=== PATIENT | female | born 1980 | race Hispanic/Latino ===

== ENCOUNTER 2017-09-19 00:03 | Emergency (ER) | payer BC ==
[~2017-09-19 00:03] MED LIST: PNV91TAB3 PO
== END 2017-09-19 00:37 | disposition home or self-care (01) ==
LOC: EDH 00:03
DX: E11.40 Type 2 diabetes mellitus with diabetic neuropathy, unspecified (principal); I10 Essential (primary) hypertension; Z79.4 Long term (current) use of insulin
CPT/HCPCS: 73620

== ENCOUNTER → 2019-03-28 | Outpatient (CLI) | payer OTHER ==
[~2019-03-28] MED LIST changes: +AMLO5TAB4 PO; +AMLO5TAB9 PO; +ATOR10 PO; +FURO40TA5 PO; +Folic Acid/Vitamin B Comp W-C PO; +INSU200I4 SQ; +LISI40TA4 PO; +METO100T14 PO; +METO25 PO
== END | disposition home or self-care (01) ==
LOC: OIH 11:02
PROVIDERS: ATTEND Internal Medicine Cardiovascular Disease
DX: Z13.6 Encounter for screening for cardiovascular disorders (principal); I31.3 Pericardial effusion (noninflammatory)
CPT/HCPCS: 75571

== ENCOUNTER → 2019-04-13 | Outpatient (CLI) | payer BC ==
[~2019-04-13] MED LIST changes: -AMLO5TAB4 PO; -AMLO5TAB9 PO; -ATOR10 PO; -FURO40TA5 PO; -Folic Acid/Vitamin B Comp W-C PO; -INSU200I4 SQ; -LISI40TA4 PO; -METO100T14 PO; -METO25 PO
== END | disposition home or self-care (01) ==
LOC: SHCH 13:23
PROVIDERS: ATTEND Internal Medicine Cardiovascular Disease
DX: I11.9 Hypertensive heart disease without heart failure (principal); I31.3 Pericardial effusion (noninflammatory)
CPT/HCPCS: 93306

== ENCOUNTER 2019-05-07 06:19 | Inpatient (IN) | payer BC ==
[~2019-05-07] VITALS: Ht 157.5 cm; Wt 80.3 kg
[2019-05-07 06:59] LABS: BASOPHILS % (AUTO) 0.7 % (0.0-5.0); EOSINOPHILS % (AUTO) 0.5 % (0.0-8.0); HEMATOCRIT 26.3 % (36-48); LYMPHOCYTES % (AUTO) 12.1 % (21.0-51.0); MEAN CORPUSCULAR HEMOGLOBIN 29.9 pg (27.0-33.0); MEAN CORPUSCULAR HGB CONC 33.7 g/dL (32.0-36.0); MEAN CORPUSCULAR VOLUME 88.7 fL (79-99); MONOCYTES % (AUTO) 4.7 % (3.0-13.0); PLATELET COUNT (AUTO) 146 K/uL (130-400); RED BLOOD CELL COUNT(AUTO) 2.96 MIL/uL (4.00-5.50); RED CELL DISTRIBUTION WIDTH 14.6 % (11.0-15.5); WHITE BLOOD COUNT (AUTO) 8.4 K/uL (4.8-10.8)
[2019-05-07 07:12] LABS: INR 0.92 (0.85-1.15); PARTIAL THROMBOPLASTIN TIME 29.4 SEC (26.3-35.5); PROTHROMBIN TIME 9.7 SEC (9.6-11.6)
[2019-05-07 07:29] LABS: B-TYPE NATRIURETIC PEPTIDE 1390 pg/mL (0-100)
[2019-05-07 07:39] LABS: ALBUMIN 2.8 g/dL (3.5-5.0); BILIRUBIN,TOTAL 0.4 mg/dL (0.2-1.0); POTASSIUM 4.3 mmol/L (3.5-5.1); TOTAL PROTEIN, SERUM 6.9 g/dL (6.0-8.3)
[2019-05-07 07:43] LABS: CREATININE 9.1 mg/dL (0.5-1.5)
[2019-05-07] MEDS ORDERED: METOPROLOL TARTRATE 1 MG/ML 5ML VIAL IV ONE (08:07)
[2019-05-07] MEDS ORDERED: AZITHROMYCIN 250 MG TABLET PO ONE (08:08)
[2019-05-07] MEDS ORDERED: CEFTRIAXONE SODIUM 1 GM ONE (08:08)
[2019-05-07] MEDS ORDERED: NITROGLYCERIN 1GM/1 INCH PACKET TD ONE (08:08)
[2019-05-07] MEDS: AZITHROMYCIN 500MG+NS 250ML 250 ML IV SCH (08:15)
[2019-05-07] MEDS ORDERED: DiphenhydrAMINE HCL 50 MG/ML VIAL IV PRN (08:15)
[2019-05-07] MEDS ORDERED: ACETAMINOPHEN 325 MG TAB PO PRN ×2 (08:15)
[2019-05-07] MEDS ORDERED: DEXTROSE 50%-WATER 50 ML DISP.SYRIN IV PRN (08:15)
[2019-05-07] MEDS ORDERED: HYDRALAZINE HCL 20 MG/ML VIAL IV PRN (08:15)
[2019-05-07] MEDS ORDERED: DIPHENHYDRAMINE HCL 25 MG CAPSULE PO PRN (08:15)
[2019-05-07] MEDS ORDERED: LACTULOSE 20 GM/30 ML UDCUP PO PRN (08:15)
[2019-05-07] MEDS ORDERED: NITROGLYCERIN 0.4 MG SL TAB SL PRN (08:15)
[2019-05-07] MEDS ORDERED: GLUCAGON 1MG KIT 1 MG ML IM PRN (08:15)
[2019-05-07] MEDS ORDERED: MAG HYDROX/AL HYDROX/SIMETH ES 30 ML SUSP UDCUP PO PRN (08:15)
[2019-05-07 08:47] LABS: HEMOGLOBIN A1C 4.9 % (4.0-6.0)
[2019-05-07 09:00] VITALS: BP 173/99
[2019-05-07] MEDS: CEFTRIAXONE SODIUM 1 GM IV SCH ×2 (09:00→21:11)
[2019-05-07] MEDS ORDERED: FUROSEMIDE 10 MG/ML 4ML VIAL IVP SCH (09:00)
[2019-05-07] MEDS ORDERED: FURO40TA5 PO (09:17)
[2019-05-07] MEDS ORDERED: METO100T14 PO (09:17)
[2019-05-07] MEDS ORDERED: ATOR10 PO (09:17)
[2019-05-07] MEDS ORDERED: INSU200I4 SQ (09:17)
[2019-05-07] MEDS ORDERED: AMLO5TAB9 PO (09:17)
[2019-05-07] MEDS ORDERED: FUROSEMIDE 10 MG/ML 10ML VIAL IVP SCH (09:30)
[2019-05-07] MEDS: METOPROLOL TARTRATE 25 MG TAB PO SCH ×2 (10:36→21:11)
[2019-05-07] MEDS: FAMOTIDINE 20MG TAB 20 MG TAB PO SCH ×2 (10:36→21:12)
[2019-05-07] MEDS: AMLODIPINE BESYLATE 5 MG TAB PO SCH ×2 (10:36→21:11)
[2019-05-07 11:00] VITALS: BP 165/107
[2019-05-07] MEDS: INSULIN HUMULIN R 100 UNIT/ML 3ML SQ SCH ×3 (11:30→21:00)
--- NOTE | 2019-05-07 14:48 | NUR ---
D/C PLAN CM spoke to pt regarding d/c planning. Pt is ind. and lives with spouse. States spouse can assist in care if needed. Plan to home. No needs verbalized or identified. CM to f/u. Addendum: 05/07/19 at 1449 by ANDRZEJ PEREZ CM Amended: Links added.
[2019-05-07 15:00] VITALS: BP 158/95
[2019-05-07] MEDS: FUROSEMIDE 10 MG/ML 10ML VIAL IVP SCH (16:52)
[2019-05-07 19:55] VITALS: BP 157/97
[2019-05-07 23:53] VITALS: BP 163/82
[2019-05-08] VITALS (11 sets, daily range): BP systolic 145–182; BP diastolic 75–110
[2019-05-08] MEDS: FUROSEMIDE 10 MG/ML 10ML VIAL IVP SCH ×2 (04:25→17:59)
[2019-05-08 04:41] LABS: BASOPHILS % (AUTO) 0.7 % (0.0-5.0); EOSINOPHILS % (AUTO) 0.9 % (0.0-8.0); LYMPHOCYTES % (AUTO) 16.8 % (21.0-51.0); MEAN CORPUSCULAR HEMOGLOBIN 29.4 pg (27.0-33.0); MEAN CORPUSCULAR VOLUME 89.1 fL (79-99); MONOCYTES % (AUTO) 3.7 % (3.0-13.0); NEUTROPHILS % (AUTO) 77.9 % (40.0-77.0); NUCLEATED RED BLOOD CELLS 0.1 % (0.0-0.19); PLATELET COUNT (AUTO) 185 K/uL (130-400); RED CELL DISTRIBUTION WIDTH 14.7 % (11.0-15.5); WHITE BLOOD COUNT (AUTO) 6.6 K/uL (4.8-10.8)
[2019-05-08 04:48] LABS: APPEARANCE,URINE Clear (CLEAR); BILIRUBIN,URINE Negative (NEGATIVE); COLOR,URINE Yellow (YELLOW); GLUCOSE, URINE (UA) TRACE mg/dL (NEGATIVE); KETONES,URINE Negative (NEGATIVE); LEUKOCYTE ESTERASE ,URINE Negative (NEGATIVE); NITRATE,URINE Negative (NEGATIVE); OCCULT BLOOD,URINE Small (NEGATIVE); PH,URINE 5.5 (5.0-8.0); PROTEIN,URINE 300 mg/dL (NEGATIVE); UROBILINOGEN,URINE 0.2 mg/dL (0.2-1.0)
[2019-05-08 04:53] LABS: BACTERIA,URINE None Seen /HPF (None Seen); MUCUS,URINE Few LPF (None Seen); SQUAMOUS EPITHELIAL CELL,UR Moderate /HPF (0-2); WBC,URINE 0-1 /HPF (0-1)
[2019-05-08 04:54] LABS: HCG,QUAL RESULT NEGATIVE (NEGATIVE)
[2019-05-08 04:55] LABS: AMPHET/METH SCREEN,URINE NEGATIVE (NEGATIVE); BARBITURATE SCREEN, URINE NEGATIVE (NEGATIVE); BENZODIAZEPINES SCREEN,URINE NEGATIVE (NEGATIVE); CANNABINOID SCREEN,URINE NEGATIVE (NEGATIVE); COCAINE SCREEN,URINE NEGATIVE (NEGATIVE); OPIATE SCREEN,URINE NEGATIVE (NEGATIVE); PHENCYCLIDINE SCREEN,URINE NEGATIVE (NEGATIVE)
[2019-05-08 04:56] LABS: HEMOGLOBIN A1C 4.7 % (4.0-6.0)
[2019-05-08 05:01] LABS: INR 0.92 (0.85-1.15); PARTIAL THROMBOPLASTIN TIME 31.9 SEC (26.3-35.5); PROTHROMBIN TIME 9.7 SEC (9.6-11.6)
[2019-05-08 05:13] LABS: ALBUMIN 2.6 g/dL (3.5-5.0); BILIRUBIN,DIRECT 0.1 mg/dL (0.0-0.3); BILIRUBIN,TOTAL 0.3 mg/dL (0.2-1.0); TOTAL PROTEIN, SERUM 6.6 g/dL (6.0-8.3)
[2019-05-08 05:18] LABS: % IRON SATURATION 13.6 % (22-44)
[2019-05-08 06:00] LABS: CREATININE 9.5 mg/dL (0.5-1.5)
[2019-05-08] MEDS: INSULIN HUMULIN R 100 UNIT/ML 3ML SQ SCH ×4 (07:30→20:49)
[2019-05-08] MEDS: METOPROLOL TARTRATE 25 MG TAB PO SCH ×2 (09:00→20:54)
[2019-05-08] MEDS: CEFTRIAXONE SODIUM 1 GM IV SCH ×2 (10:23→20:53)
[2019-05-08] MEDS: AZITHROMYCIN 500MG+NS 250ML 250 ML IV SCH ×2 (10:26→18:00)
--- NOTE | 2019-05-08 11:06 | NUR ---
PERMACATH PLACEMENT / HD NURSE CALLED- PENDING CALL BACK AT THIS TIME. Patient taken down to cath-lab for permacath placement by IR as per Dr. Jayleen Trujillo. Consent for procedure and HD completed. Also, HD Nurse Halina JULES called. However, no answer. Voice message left stating that the patient does have orders for HD today over 2 hrs- As per Dr Jayleen Trujillo. Pending call back from Halina at this time.
[2019-05-08] MEDS ORDERED: LIDOCAINE HCL 1% MDV 50ML VIAL ONE (11:16)
[2019-05-08] MEDS: FOLIC ACID/VITAMIN B COMP W-C 1 MG CAP/TAB PO SCH (12:34)
[2019-05-08] MEDS: FAMOTIDINE 20MG TAB 20 MG TAB PO SCH ×2 (12:34→20:54)
[2019-05-08 13:42] LABS: HEMATOCRIT 26.4 % (36-48)
[2019-05-08 13:58] LABS: ALBUMIN 2.7 g/dL (3.5-5.0)
--- NOTE | 2019-05-08 14:00 | NUR ---
HD NURSE SHANA Morgan made aware of dialysis orders for today, will come see pt today.
[2019-05-08 14:03] LABS: CREATININE 9.6 mg/dL (0.5-1.5)
[2019-05-08] MEDS: ONDANSETRON HCL 4 MG/2 ML VIAL IV PRN (14:21)
--- NOTE | 2019-05-08 15:35 | NUR ---
RD Notification Pt admitted for PNA, ESRD. Pt Hx of DM, HTN, CKDV. Upon visit, Pt reports she was tolerating food until later this afternoon, developing Nausea. Pt with Dialysis after visit. RD also provided Dialysis Diet education. Pt with multiple questions and verbalized understanding. Pt with previous Diabetes diet education, RD reinforced with new Dialysis diet education. Pt monitored labs: CO2 17, BUN 91, Cr 9.5, GFR 5, BG 132, Ca 7.0, Fe 27, TIBC 198, %Sat 13.6, ALb 2.6. RD to continue to monitor. Please notify RD as additional nutrition concerns arise. Thank you. Addendum: 05/08/19 at [address] RD Amended: Links added.
--- NOTE | 2019-05-08 15:39 | NUR ---
DIET EDUCATION RD provided Renal Dialysis diet education. RD reviewed reference materials and handouts with Pt. Pt with multiple questions. RD answered questions, Pt verbalized understanding. RD also reviewed Diabetes diet recommendations with new Dialysis diet information. Pt verbalized understanding. LINCOLN encouraged Pt to notify as additional questions or concerns arise. Addendum: 05/08/19 at [address] RD Amended: Links added.
[2019-05-08] MEDS ORDERED: SODIUM CHLORIDE 0.9% 1000ML 1,000 ML IV PRN (16:00)
[2019-05-08] MEDS ORDERED: ACETAMINOPHEN 325 MG TAB PO PRN (16:00)
[2019-05-08] MEDS ORDERED: 0.9% SODIUM CHLORIDE 1000 ML IV BAG IV PRN (16:00)
[2019-05-08] MEDS: HEPARIN SODIUM 5000UNIT/ML 1ML VIAL IJ PRN (17:13)
--- NOTE | 2019-05-08 17:37 | NUR ---
RIGHT MALLORY BARGERACATLeon Addendum: 05/08/19 at 1738 by RAHUL SANTILLAN RN RN Amended: Links added.
[2019-05-08] MEDS: AMLODIPINE BESYLATE 5 MG TAB PO SCH ×2 (18:00→20:53)
[2019-05-09] MEDS: GUAIFENESIN-DM 200/20 MG 10 ML PO PRN ×2 (04:00→16:05)
[2019-05-09 04:12] VITALS: BP 157/85
[2019-05-09] MEDS: FUROSEMIDE 10 MG/ML 10ML VIAL IVP SCH (04:54)
[2019-05-09 05:42] LABS: BASOPHILS % (AUTO) 1.1 % (0.0-5.0); EOSINOPHILS % (AUTO) 0.9 % (0.0-8.0); HEMATOCRIT 25.9 % (36-48); MEAN CORPUSCULAR HEMOGLOBIN 29.4 pg (27.0-33.0); MEAN CORPUSCULAR HGB CONC 33.1 g/dL (32.0-36.0); MEAN CORPUSCULAR VOLUME 88.9 fL (79-99); MONOCYTES % (AUTO) 6.5 % (3.0-13.0); NEUTROPHILS % (AUTO) 69.5 % (40.0-77.0); PLATELET COUNT (AUTO) 176 K/uL (130-400); RED BLOOD CELL COUNT(AUTO) 2.92 MIL/uL (4.00-5.50); RED CELL DISTRIBUTION WIDTH 14.1 % (11.0-15.5); WHITE BLOOD COUNT (AUTO) 4.5 K/uL (4.8-10.8)
[2019-05-09 05:57] LABS: CREATININE 7.5 mg/dL (0.5-1.5); POTASSIUM 3.4 mmol/L (3.5-5.1)
[2019-05-09] MEDS: INSULIN HUMULIN R 100 UNIT/ML 3ML SQ SCH ×4 (06:17→20:56)
[2019-05-09 07:53] VITALS: BP 155/88
[2019-05-09] MEDS: CEFTRIAXONE SODIUM 1 GM IV SCH ×2 (10:13→20:38)
[2019-05-09] MEDS: FAMOTIDINE 20MG TAB 20 MG TAB PO SCH ×2 (10:13→20:37)
[2019-05-09] MEDS: FOLIC ACID/VITAMIN B COMP W-C 1 MG CAP/TAB PO SCH (10:13)
[2019-05-09 11:31] VITALS: BP 149/84
--- NOTE | 2019-05-09 12:08 | NUR ---
OSCAR PLAN LOUISE SIGNED FOR [facility]. INFO SENT. PENDING 2 MORE TREATMENTS AND HEP AND HIV LABS. Addendum: 05/09/19 at 1209 by TIGIST BUTLER RN CM Amended: Links added.
[2019-05-09 12:09] LABS: HEPATITIS Bs ANTIGEN SCREEN P Negative (Negative)
[2019-05-09 15:19] VITALS: BP 158/87
--- NOTE | 2019-05-09 18:00 | NUR ---
Dialysis center RENAL in [facility]
--- NOTE | 2019-05-09 18:00 | NUR ---
Dr. Kramer Plan for Peritoneal dialysis catheter placement tomorrow 05-09-2019. NPO after midnight.
[2019-05-09] MEDS: METOPROLOL TARTRATE 25 MG TAB PO SCH ×2 (18:19→20:35)
[2019-05-09 19:47] VITALS: BP 166/89
[2019-05-09 23:41] VITALS: BP 155/78
[2019-05-10] VITALS (19 sets, daily range): BP systolic 141–176; BP diastolic 74–92
[2019-05-10 04:20] LABS: BASOPHILS % (AUTO) 0.9 % (0.0-5.0); EOSINOPHILS % (AUTO) 1.5 % (0.0-8.0); LYMPHOCYTES % (AUTO) 23.4 % (21.0-51.0); MEAN CORPUSCULAR HEMOGLOBIN 29.8 pg (27.0-33.0); MEAN CORPUSCULAR HGB CONC 33.9 g/dL (32.0-36.0); MONOCYTES % (AUTO) 9.2 % (3.0-13.0); NUCLEATED RED BLOOD CELLS 0.1 % (0.0-0.19); PLATELET COUNT (AUTO) 167 K/uL (130-400); RED BLOOD CELL COUNT(AUTO) 2.84 MIL/uL (4.00-5.50); RED CELL DISTRIBUTION WIDTH 14.5 % (11.0-15.5); WHITE BLOOD COUNT (AUTO) 4.4 K/uL (4.8-10.8)
[2019-05-10 04:35] LABS: CREATININE 5.4 mg/dL (0.5-1.5); POTASSIUM 3.3 mmol/L (3.5-5.1)
[2019-05-10 04:54] LABS: B-TYPE NATRIURETIC PEPTIDE 1160 pg/mL (0-100)
[2019-05-10] MEDS: INSULIN HUMULIN R 100 UNIT/ML 3ML SQ SCH ×4 (05:32→21:00)
[2019-05-10] MEDS ORDERED: BUPIVACAINE/EPI/PF 0.5% 30ML VIAL IJ ONE (05:43)
--- NOTE | 2019-05-10 06:01 | NUR ---
PROCEDURE PATIENT TRANSFERRED TO HER PERITONEAL DIALYSIS CATHETER PROCEDURE BY OR STAFF. PATIENT AWAKE AND ALERT. NO SIGNS OF DISTRESS OR PAIN.
[2019-05-10] MEDS ORDERED: LIDOCAINE PF 2% 5ML ABBOJECT ONE (06:24)
[2019-05-10] MEDS ORDERED: FENTANYL CITRATE PF 50 MCG/1 ML 2ML VIAL ONE (06:25)
[2019-05-10] MEDS ORDERED: MIDAZOLAM HCL 1 MG/ML 2ML VIAL ONE (06:25)
[2019-05-10] MEDS ORDERED: PROPOFOL 10 MG/ML 20ML VIAL IV ONE (06:25)
[2019-05-10] MEDS ORDERED: ROCURONIUM 10MG/1ML SYR 10 MG/ML ML ONE (06:25)
[2019-05-10] MEDS ORDERED: GLYCOPYRROLATE 1 MG/5 ML SYRINGE ONE (07:59)
[2019-05-10] MEDS ORDERED: MEPERIDINE-PF 25 MG/ML SYG ONE ×2 (08:17→08:28)
[2019-05-10] MEDS: CEFTRIAXONE SODIUM 1 GM IV SCH ×2 (09:57→21:14)
[2019-05-10] MEDS: AZITHROMYCIN 500MG+NS 250ML 250 ML IV SCH (09:57)
[2019-05-10] MEDS: FAMOTIDINE 20MG TAB 20 MG TAB PO SCH ×2 (10:00→21:14)
[2019-05-10] MEDS: FOLIC ACID/VITAMIN B COMP W-C 1 MG CAP/TAB PO SCH (10:00)
[2019-05-10] MEDS: METOPROLOL TARTRATE 25 MG TAB PO SCH ×3 (10:00→21:15)
[2019-05-10] MEDS: LISINOPRIL 40 MG TABLET PO SCH (10:00)
[2019-05-10] MEDS ORDERED: TRAMADOL HCL 50 MG TABLET PO PRN (10:15)
[2019-05-10] MEDS: ONDANSETRON HCL 4 MG/2 ML VIAL IV PRN (10:18)
[2019-05-10] MEDS: AMLODIPINE BESYLATE 5 MG TAB PO SCH (12:34)
[2019-05-11 03:36] VITALS: BP 175/84
[2019-05-11] MEDS: INSULIN HUMULIN R 100 UNIT/ML 3ML SQ SCH ×3 (06:34→16:00)
[2019-05-11] MEDS: AZITHROMYCIN 500MG+NS 250ML 250 ML IV SCH ×2 (07:43→10:16)
[2019-05-11 07:58] VITALS: BP 150/91
[2019-05-11] MEDS: FAMOTIDINE 20MG TAB 20 MG TAB PO SCH (09:00)
[2019-05-11] MEDS: FOLIC ACID/VITAMIN B COMP W-C 1 MG CAP/TAB PO SCH (09:00)
[2019-05-11] MEDS: LISINOPRIL 40 MG TABLET PO SCH (09:00)
[2019-05-11] MEDS: AMLODIPINE BESYLATE 5 MG TAB PO SCH ×2 (09:00→15:43)
[2019-05-11] MEDS: METOPROLOL TARTRATE 25 MG TAB PO SCH (09:00)
[2019-05-11] MEDS: HEPARIN SODIUM 5000UNIT/ML 1ML VIAL IJ PRN (09:53)
[2019-05-11] MEDS: CEFTRIAXONE SODIUM 1 GM IV SCH (10:14)
[2019-05-11 11:45] VITALS: BP 141/88
[2019-05-11] MEDS ORDERED: Folic Acid/Vitamin B Comp W-C PO (12:56)
[2019-05-11] MEDS ORDERED: LISI40TA4 PO (12:56)
[2019-05-11] MEDS ORDERED: AMLO5TAB4 PO (12:56)
[2019-05-11] MEDS ORDERED: METO25 PO (12:56)
[2019-05-11 15:39] VITALS: BP 148/95
--- NOTE | 2019-05-11 15:55 | NUR ---
HL REMOVED, CATHETER INTACT. DISCHARGE INSTRUCTIONS GIVEN, VERBALIZED UNDERSTANDING. PT. STATES WILL RECEIVE FLU VACCINE AT PMD OFFICE.
--- NOTE | 2019-05-11 16:05 | NUR ---
DISCHARGED HOME VIA W/C WITH BELONGINGS ACCOMPANIED BY SHAQ COREA.
--- NOTE | 2019-05-11 16:42 | NUR ---
OSCAR ANDRADE VISITED WITH PATIENT. GAVE PAPER COPY OF DIALYSIS INFO. TTS 615PM AT [facility] [place]. LET HER KNOW PATIENT TO GO TO 1PM TO FINISH SETTING UP. Addendum: 05/11/19 at 1644 by TIGIST BUTLER RN CM Amended: Links added.
== END 2019-05-11 16:04 | disposition home or self-care (01) | DRG 673 ==
LOC: EDH 06:19 → 2AH 08:15
PROVIDERS: ADMIT Family Medicine; ATTEND Family Medicine
PROC: 0JH63XZ Insertion of Tunneled Vascular Access Device into Chest Subcutaneous Tissue and Fascia, Percutaneous Approach (ICD-10-PCS; principal; 2019-05-08)
PROC: 02H633Z Insertion of Infusion Device into Right Atrium, Percutaneous Approach (ICD-10-PCS; 2019-05-08)
PROC: 5A1D70Z Performance of Urinary Filtration, Intermittent, Less than 6 Hours Per Day (ICD-10-PCS; 2019-05-08)
PROC: 5A1D70Z Performance of Urinary Filtration, Intermittent, Less than 6 Hours Per Day (ICD-10-PCS; 2019-05-09)
PROC: 0WHG43Z Insertion of Infusion Device into Peritoneal Cavity, Percutaneous Endoscopic Approach (ICD-10-PCS; 2019-05-10)
PROC: 3E1M39Z Irrigation of Peritoneal Cavity using Dialysate, Percutaneous Approach (ICD-10-PCS; 2019-05-10)
PROC: 5A1D70Z Performance of Urinary Filtration, Intermittent, Less than 6 Hours Per Day (ICD-10-PCS; 2019-05-11)
DX: I12.0 Hypertensive chronic kidney disease with stage 5 chronic kidney disease or end stage renal disease (principal); J18.9 Pneumonia, unspecified organism; N18.6 End stage renal disease; J96.01 Acute respiratory failure with hypoxia; I16.9 Hypertensive crisis, unspecified; J90 Pleural effusion, not elsewhere classified; E87.70 Fluid overload, unspecified; E11.22 Type 2 diabetes mellitus with diabetic chronic kidney disease; E11.51 Type 2 diabetes mellitus with diabetic peripheral angiopathy without gangrene; D64.9 Anemia, unspecified; E66.01 Morbid (severe) obesity due to excess calories; Z68.32 Body mass index [BMI] 32.0-32.9, adult; Z79.4 Long term (current) use of insulin; Z82.3 Family history of stroke; Z82.49 Family history of ischemic heart disease and other diseases of the circulatory system; Z83.3 Family history of diabetes mellitus; Z91.15 Patient's noncompliance with renal dialysis; Z98.891 History of uterine scar from previous surgery; Z99.2 Dependence on renal dialysis; Z91.19 Patient's noncompliance with other medical treatment and regimen
CPT/HCPCS: 36415; 36558; 71045; 77001; 80048; 80053; 80061; 80076; 80305; 81001; 81025; 82040; 82550; 82565; 82728; 82948; 83036; 83540; 83550; 83605; 83880; 84145; 84484; 84520; 85014; 85018; 85025; 85610; 85730; 86701; 86704; 86706; 86738; 87040; 87340; 87390; 87449; 87520; 87804; 90935; 93005; 99291; C1750; G0378; J0360; J0456; J0696; J1644; J1815; J1940; J2001; J2175; J2250; J2405; J2704; J3010; J3490; J7030

== ENCOUNTER 2019-07-10 06:56 | Day surgery (SDC) | payer BC ==
[~2019-07-10] VITALS: Ht 157.5 cm; Wt 78.3 kg
[~2019-07-10 06:56] MED LIST changes: +AMLO5TAB4 PO; +ATOR10 PO; +Folic Acid/Vitamin B Comp W-C PO; +INSU200I4 SQ; +LISI40TA4 PO; +METO25 PO; -PNV91TAB3 PO
[2019-07-10 07:35] VITALS: BP 120/71
--- NOTE | 2019-07-10 07:35 | NUR ---
PATIENT ARRIVED TO DAY PATIENT ACCOMPANIED BY SELF. PATIENT AAOX3, RESPIRATIONS UNLABORED, VITAL SIGNS STABLE, DENIES ANY PAIN. PROCEDURE VERIFIED WITH PATIENT. HOSPITAL ROUTINE EXPLAINED TO PATIENT. PATIENT VERBALIZED UNDERSTANDING.
[2019-07-10 07:51] LABS: BASOPHILS % (AUTO) 0.2 % (0.0-5.0); EOSINOPHILS % (AUTO) 0.8 % (0.0-8.0); LYMPHOCYTES % (AUTO) 18.1 % (21.0-51.0); MEAN CORPUSCULAR HEMOGLOBIN 29.6 pg (27.0-33.0); MEAN CORPUSCULAR HGB CONC 32.2 g/dL (32.0-36.0); MEAN CORPUSCULAR VOLUME 91.8 fL (79-99); MONOCYTES % (AUTO) 3.8 % (3.0-13.0); NEUTROPHILS % (AUTO) 76.9 % (40.0-77.0); PLATELET COUNT (AUTO) 175 K/uL (130-400); RED BLOOD CELL COUNT(AUTO) 2.94 MIL/uL (4.00-5.50); RED CELL DISTRIBUTION WIDTH 13.4 % (11.0-15.5); WHITE BLOOD COUNT (AUTO) 8.8 K/uL (4.8-10.8)
[2019-07-10 08:08] LABS: INR 0.94 (0.85-1.15); PROTHROMBIN TIME 9.9 SEC (9.6-11.6)
[2019-07-10 08:14] LABS: ALBUMIN 3.4 g/dL (3.5-5.0); BILIRUBIN,TOTAL 0.2 mg/dL (0.2-1.0); POTASSIUM 4.7 mmol/L (3.5-5.1); TOTAL PROTEIN, SERUM 7.9 g/dL (6.0-8.3)
[2019-07-10] MEDS ORDERED: SODIUM CHLORIDE 0.9% 1000ML 1,000 ML IV ONE (08:19)
[2019-07-10] MEDS ORDERED: LIDOCAINE HCL 1% MDV 50ML VIAL ONE (08:30)
[2019-07-10 08:44] LABS: CREATININE 11.5 mg/dL (0.5-1.5)
--- NOTE | 2019-07-10 09:05 | NUR ---
RIGHT PERMACATH REMOVAL AT BEDSIDE PATIENT PREPPED AT BEDSIDE FOR RIGHT PERMACATH REMOVAL PER DR CRUZ. TIMEOUT PERFORMED PRIOR TO START OF PROCEDURE. 1% LIDOCAINE ADMINISTERED TO SITE. CATHETER REMOVED AND MANUAL PRESSURE APPLIED. NO BLEEDING OR HEMATOMA NOTED TO SITE. DRESSING APPLIED. PATIENT TOLERATED WELL. NO COMPLAINTS. REPORT GIVEN TO PRIMARY NURSE.
[2019-07-10 09:30] VITALS: BP 124/78
--- NOTE | 2019-07-10 09:30 | NUR ---
POST PROCEDURE DRESSING TO RIGHT UPPER CHEST IS DRY/INTACT. NO REDNESS/DRAINAGE OR HEMATOMA NOTED. PATIENT DENIES ANY PAIN AT THIS TIME.
--- NOTE | 2019-07-10 09:54 | NUR ---
DISCHARGE INSTRUCTIONS PROVIDED, HANDOUT PROVIDED AND EXPLAINED TO PATIENT. INSTRUCTED PATIENT TO REMOVE DRESSING IN 72 HOURS, PATIENT VERBALIZED UNDERSTANDING.
[2019-07-10 10:30] VITALS: BP 126/72
--- NOTE | 2019-07-10 11:45 | NUR ---
PATIENT DISCHARGED FROM FACILITY VIA WHEELCHAIR, PATIENT ABLE TO WALK TO PRIVATE VEHICLE AND DRIVE HERSELF HOME
== END 2019-07-10 11:45 | disposition home or self-care (01) ==
LOC: CLH 06:56 → DAH 06:56 → CLH 11:45
PROVIDERS: ATTEND Internal Medicine Nephrology
DX: Z45.2 Encounter for adjustment and management of vascular access device (principal); E11.22 Type 2 diabetes mellitus with diabetic chronic kidney disease; N18.6 End stage renal disease; Z99.2 Dependence on renal dialysis
CPT/HCPCS: 36415; 36589; 71045; 80053; 82948; 85025; 85610; A4215; A4216; A4221; A4223 ×2; A4606; A4663; J3490; J7030

== ENCOUNTER → 2019-12-12 | Outpatient (CLI) | payer BC, MEDICARE | END | disposition home or self-care (01) | LOC: SHCH 16:00 | PROVIDERS: ATTEND Internal Medicine Cardiovascular Disease | DX: I10 Essential (primary) hypertension (principal) | CPT/HCPCS: 93306; 93356 ==

== ENCOUNTER → 2019-12-14 | Outpatient (CLI) | payer BC, MEDICARE ==
[~2019-12-14] MED LIST changes: +REGADENOSON 0.4 MG/5 ML PF SYG IVP SCH
== END | disposition home or self-care (01) ==
LOC: SHCH 08:40
PROVIDERS: ATTEND Internal Medicine Cardiovascular Disease
DX: I10 Essential (primary) hypertension (principal)
CPT/HCPCS: 78452; 93017; 96374; A9500 ×2; J2785

== ENCOUNTER 2020-02-22 06:39 | Day surgery (SDC) | payer BC, MEDICARE ==
[2020-02-14 11:21] LABS: BASOPHILS % (AUTO) 0.4 % (0.0-5.0); EOSINOPHILS % (AUTO) 0.9 % (0.0-8.0); HEMATOCRIT 23.6 % (36-48); LYMPHOCYTES % (AUTO) 22.1 % (21.0-51.0); MEAN CORPUSCULAR HEMOGLOBIN 33.3 pg (27.0-33.0); MEAN CORPUSCULAR HGB CONC 34.3 g/dL (32.0-36.0); MEAN CORPUSCULAR VOLUME 97.1 fL (79-99); MONOCYTES % (AUTO) 4.5 % (3.0-13.0); NEUTROPHILS % (AUTO) 71.6 % (40.0-77.0); PLATELET COUNT (AUTO) 167 K/uL (130-400); RED BLOOD CELL COUNT(AUTO) 2.43 MIL/uL (4.00-5.50); RED CELL DISTRIBUTION WIDTH 14.4 % (11.0-15.5); WHITE BLOOD COUNT (AUTO) 7.5 K/uL (4.8-10.8)
[2020-02-14 12:31] LABS: INR 0.89 (0.85-1.15); PARTIAL THROMBOPLASTIN TIME 26.8 SEC (26.3-35.5); PROTHROMBIN TIME 9.7 SEC (9.6-11.6)
--- NOTE | 2020-02-21 09:59 | NUR ---
labs abnormal hh reported to dr. stewart, message left with Glo, pending call back
[~2020-02-22] VITALS: Ht 157.5 cm; Wt 80.1 kg
[2020-02-22] VITALS (21 sets, daily range): BP systolic 112–165; BP diastolic 63–90
[~2020-02-22 06:39] MED LIST changes: -AMLO5TAB4 PO; +AMLO5TAB9 PO; +FURO40TA5 PO; -Folic Acid/Vitamin B Comp W-C PO; -INSU200I4 SQ; +LACTATED RINGERS 1000ML 1,000 ML IV SCH; +LEVO50TA11 PO; +LINA5TAB PO; -METO25 PO; +NPH,100V11 SQ; +PANT40TA54 PO; -REGADENOSON 0.4 MG/5 ML PF SYG IVP SCH; +STRONG IODINE SOLN 14ML BOTTLE ONE
[2020-02-22] MEDS ORDERED: VASOPRESSIN 20 UNITS/ML 1ML VIAL ONE (06:52)
[2020-02-22] MEDS ORDERED: SODIUM CHLORIDE 0.9% 1000ML 1,000 ML IV ONE (06:59)
[2020-02-22] MEDS ORDERED: FENTANYL CITRATE PF 50 MCG/1 ML 2ML VIAL ONE (07:23)
[2020-02-22] MEDS ORDERED: PROPOFOL 10 MG/ML 20ML VIAL IV ONE (07:23)
[2020-02-22] MEDS ORDERED: DEXAMETHASONE SOD PHOSPHATE 10MG/ML 1ML VIAL ONE (07:23)
[2020-02-22] MEDS ORDERED: ONDANSETRON HCL 4 MG/2 ML VIAL ONE (07:23)
[2020-02-22] MEDS ORDERED: LIDOCAINE PF 2% 5ML ABBOJECT ONE (07:23)
[2020-02-22] MEDS ORDERED: SUCCINYLCHOLINE 200MG/10ML SYR ONE (07:23)
[2020-02-22] MEDS ORDERED: MIDAZOLAM HCL 1 MG/ML 2ML VIAL ONE ×2 (07:23→08:38)
[2020-02-22] MEDS ORDERED: ROCURONIUM 10MG/1ML SYR 10 MG/ML ML ONE (07:24)
[2020-02-22 07:26] LABS: POTASSIUM 4.7 mmol/L (3.5-5.1)
[2020-02-22 07:45] LABS: CREATININE 19.4 mg/dL (0.5-1.5)
[2020-02-22] MEDS ORDERED: MEPERIDINE-PF 25 MG/ML SYG ONE ×2 (08:29→08:49)
[2020-02-22] MEDS ORDERED: MORPHINE SULFATE 4 MG/1ML SYG ONE (09:05)
--- NOTE | 2020-02-22 09:30 | NUR ---
PATIENT ARRIVED TO DAY PATIENT VIA STRETCHER BY DHARA GARCIA. PATIENT AAOX3, RESPIRATIONS UNLABORED, VITAL SIGNS STABLE. NO C/O PAIN AT THIS TIME. S/P CONE KNIFE CONIZATION, NO VALERIO PAD IN PLACE. NO BLEEDING AT THIS TIME NOTED FROM VAGINA.
--- NOTE | 2020-02-22 09:50 | NUR ---
DISCHARGE INSTRUCTIONS PROVIDED TO (FAMILY) MEGAN CHAMORRO VIA TELEPHONE. HANDOUTS PROVIDED AND FOLLOW UP APPOINTMENT PROVIDED WELL. ALL QUESTIONS/CONCERNS ADDRESSED.
--- NOTE | 2020-02-22 10:10 | NUR ---
PATIENT DISCHARGED FROM HOSPITAL VIA WHEELCHAIR BY NURSE. PATIENT ASSISTED (STAND BY ASSIST) INTO PRIVATE VEHICLE DRIVEN BY FAMILY.
== END 2020-02-22 10:10 | disposition home or self-care (01) ==
LOC: DAH 06:39
PROVIDERS: ATTEND Specialist
DX: R87.613 High grade squamous intraepithelial lesion on cytologic smear of cervix (HGSIL) (principal); I12.9 Hypertensive chronic kidney disease with stage 1 through stage 4 chronic kidney disease, or unspecified chronic kidney disease; E11.22 Type 2 diabetes mellitus with diabetic chronic kidney disease; N18.9 Chronic kidney disease, unspecified; Z99.2 Dependence on renal dialysis; Z20.828 Contact with and (suspected) exposure to other viral communicable diseases
CPT/HCPCS: 36415 ×2; 57520; 80048; 82948 ×2; 84703; 85025; 85610; 85730; 86850; 86900; 86901; A4215; A4221; A4222; A4223; A4351; A4663; A6260; C1769; C9803; J0330; J2001; J2175 ×2; J2250 ×2; J2270; J2405; J2704; J3010; J3490; J7030; U0003; J1100

== ENCOUNTER 2020-03-18 18:06 | Emergency (ER) | payer BC, MEDICARE ==
[~2020-03-18 18:06] MED LIST changes: +ASPI-1443 PO; +FOLIC ACID PO; +IRON150C15 PO; -LACTATED RINGERS 1000ML 1,000 ML IV SCH; +PANT40TA55 PO; +RENAVITE PO; -STRONG IODINE SOLN 14ML BOTTLE ONE
[2020-03-19] MEDS ORDERED: FURO40TA5 PO (10:52)
[2020-03-19] MEDS ORDERED: PHOSLOC PO (10:53)
== END 2020-03-18 19:46 | disposition home or self-care (01) ==
LOC: EDH 18:06
DX: T82.838A Hemorrhage due to vascular prosthetic devices, implants and grafts, initial encounter (principal); Y83.8 Other surgical procedures as the cause of abnormal reaction of the patient, or of later complication, without mention of misadventure at the time of the procedure; Y92.89 Other specified places as the place of occurrence of the external cause
CPT/HCPCS: 99281

== ENCOUNTER 2020-06-23 08:06 | Emergency (ER) | payer BC, MEDICARE ==
[~2020-06-23 08:06] MED LIST changes: +AMLO-257 PO; -AMLO5TAB9 PO; -PANT40TA54 PO; +PHOSLOC PO
== END 2020-06-23 10:23 | disposition home or self-care (01) ==
LOC: EDH 08:06
DX: I12.0 Hypertensive chronic kidney disease with stage 5 chronic kidney disease or end stage renal disease (principal); E11.22 Type 2 diabetes mellitus with diabetic chronic kidney disease; N18.6 End stage renal disease; Z90.49 Acquired absence of other specified parts of digestive tract; Z90.710 Acquired absence of both cervix and uterus; Z98.890 Other specified postprocedural states
CPT/HCPCS: 99281

== ENCOUNTER 2020-06-29 11:58 | Inpatient (IN) | payer BC, MEDICARE ==
[~2020-06-29] VITALS: Ht 157.5 cm; Wt 73.0 kg
[~2020-06-29 11:58] MED LIST changes: -LISI40TA4 PO; +LISI40TA9 PO
[2020-06-29 12:51] LABS: BASOPHILS % (AUTO) 0.6 % (0.0-5.0); EOSINOPHILS % (AUTO) 3.9 % (0.0-8.0); LYMPHOCYTES % (AUTO) 16.1 % (21.0-51.0); MEAN CORPUSCULAR HEMOGLOBIN 33.3 pg (27.0-33.0); MEAN CORPUSCULAR HGB CONC 35.4 g/dL (32.0-36.0); MEAN CORPUSCULAR VOLUME 94.2 fL (79-99); MONOCYTES % (AUTO) 7.2 % (3.0-13.0); NEUTROPHILS % (AUTO) 71.6 % (40.0-77.0); PLATELET COUNT (AUTO) 103 K/uL (130-400); RED BLOOD CELL COUNT(AUTO) 2.07 MIL/uL (4.00-5.50); RED CELL DISTRIBUTION WIDTH 14.4 % (11.0-15.5); WHITE BLOOD COUNT (AUTO) 1.8 K/uL (4.8-10.8)
[2020-06-29 12:53] LABS: HEMATOCRIT 19.5 % (36-48)
[2020-06-29 13:05] LABS: ALBUMIN 3.4 g/dL (3.5-5.0); BILIRUBIN,TOTAL 0.4 mg/dL (0.2-1.0); POTASSIUM 3.4 mmol/L (3.5-5.1); TOTAL PROTEIN, SERUM 7.1 g/dL (6.0-8.3)
[2020-06-29 13:15] LABS: CREATININE 11.5 mg/dL (0.5-1.5)
[2020-06-29] MEDS ORDERED: AZITHROMYCIN 250 MG TABLET PO ONE (14:17)
[2020-06-29] MEDS ORDERED: ASPIRIN 325 MG TABLET ONE (14:17)
[2020-06-29] MEDS ORDERED: CEFTRIAXONE 1G VIAL ONE (14:17)
[2020-06-29] MEDS ORDERED: DEXAMETHASONE SOD PHOSPHATE 10MG/ML 1ML VIAL ONE (14:17)
[2020-06-29] MEDS ORDERED: ONDANSETRON 4MG INJ IVP PRN (15:30)
[2020-06-29] MEDS: INSULIN R PO SS1/2 SQ SCH ×2 (16:30→20:48)
[2020-06-29 19:00] VITALS: BP 136/79
[2020-06-29] MEDS ORDERED: NPH,100V11 SQ (19:23)
[2020-06-29] MEDS ORDERED: VITAD50000 PO (19:23)
[2020-06-29] MEDS ORDERED: LEVO75CA5 PO (19:23)
[2020-06-29] MEDS ORDERED: 0.9%NACL 1000ML 1,000 ML IV PRN (21:00)
[2020-06-29] MEDS ORDERED: 0.9%NACL 1000ML IV PRN (21:00)
[2020-06-29] MEDS ORDERED: ACETAMINOPHEN 325 MG TAB PO PRN (21:00)
[2020-06-29] MEDS ORDERED: HEPARIN 5,000 UNIT VIAL IJ PRN (21:00)
[2020-06-29 23:49] VITALS: BP 128/69
[2020-06-30 04:16] VITALS: BP 100/65
[2020-06-30 04:41] VITALS: BP 135/70
[2020-06-30 05:01] LABS: HEMATOCRIT 28.1 % (36-48); MEAN CORPUSCULAR HEMOGLOBIN 31.3 pg (27.0-33.0); MEAN CORPUSCULAR HGB CONC 35.2 g/dL (32.0-36.0); MEAN CORPUSCULAR VOLUME 88.9 fL (79-99); RED BLOOD CELL COUNT(AUTO) 3.16 MIL/uL (4.00-5.50); RED CELL DISTRIBUTION WIDTH 14.7 % (11.0-15.5); WHITE BLOOD COUNT (AUTO) 1.6 K/uL (4.8-10.8)
[2020-06-30 05:20] LABS: ALBUMIN 3.2 g/dL (3.5-5.0); BILIRUBIN,TOTAL 0.5 mg/dL (0.2-1.0); MAGNESIUM 2.9 mg/dL (1.80-2.40); PHOSPHORUS 4.5 mg/dL (2.5-4.9); POTASSIUM 4.1 mmol/L (3.5-5.1); TOTAL PROTEIN, SERUM 7.8 g/dL (6.0-8.3)
[2020-06-30] MEDS: INSULIN R PO SS1/2 SQ SCH ×4 (06:12→17:28)
[2020-06-30 08:00] VITALS: BP 148/80
[2020-06-30] MEDS: DEXAMETHASONE SOD PHOSPHATE 10MG/ML 1ML VIAL IV SCH (08:51)
[2020-06-30] MEDS: PANTOPRAZOLE 40 MG TAB DR PO SCH (08:51)
[2020-06-30] MEDS ORDERED: VITAMIN D PO SCH (09:00)
[2020-06-30] MEDS: ZINC SULFATE 220 CAPSULE PO SCH (11:52)
[2020-06-30 12:00] VITALS: BP 132/80
[2020-06-30 16:00] VITALS: BP 141/84
[2020-06-30] MEDS: CALCIUM AC 667MG CAP PO SCH (18:10)
[2020-06-30] MEDS: INSULIN NPH 100 UNIT/ML 3ML SQ SCH (18:11)
[2020-06-30] MEDS: FUROSEMIDE 40 MG TABLET PO SCH (20:54)
[2020-06-30 21:00] VITALS: BP 148/81
[2020-06-30] MEDS: INSULIN HUMULIN R 100 UNIT/ML 3ML SQ SCH (21:34)
[2020-07-01] VITALS (7 sets, daily range): BP systolic 134–153; BP diastolic 72–95
[2020-07-01] MEDS: LEVOTHYROXINE 75 MCG TABLET PO SCH (06:46)
[2020-07-01] MEDS: INSULIN HUMULIN R 100 UNIT/ML 3ML SQ SCH ×4 (06:47→21:28)
[2020-07-01] MEDS: INSULIN NPH 100 UNIT/ML 3ML SQ SCH ×2 (06:48→17:08)
[2020-07-01] MEDS: DEXAMETHASONE SOD PHOSPHATE 10MG/ML 1ML VIAL IV SCH (09:00)
[2020-07-01] MEDS: PANTOPRAZOLE 40 MG TAB DR PO SCH (09:18)
[2020-07-01] MEDS: Vitamin B Complex/Vit C/Folic Acid PO SCH (09:18)
[2020-07-01] MEDS: FUROSEMIDE 40 MG TABLET PO SCH ×2 (09:18→21:27)
[2020-07-01] MEDS: LINAGLIPTIN 5 MG TABLET PO SCH (09:18)
[2020-07-01] MEDS: FOLIC ACID 1 MG TABLET PO SCH (09:18)
[2020-07-01] MEDS: CALCIUM AC 667MG CAP PO SCH ×3 (09:18→17:09)
[2020-07-01] MEDS: LISINOPRIL 40 MG TABLET PO SCH (12:39)
[2020-07-01] MEDS: ZINC SULFATE 220 CAPSULE PO SCH (12:39)
[2020-07-01] MEDS: AMLODIPINE 5 MG TAB PO SCH (12:39)
[2020-07-01] MEDS ORDERED: EPOETIN ALFA-EPBX (ESRD) 10,000 UNIT/ML VIAL SQ SCH (13:15)
[2020-07-02] VITALS: BP 134/69
[2020-07-02 03:08] LABS: HEPATITIS Bs ANTIGEN SCREEN P Negative (Negative)
[2020-07-02 04:00] VITALS: BP 139/91
[2020-07-02 05:00] LABS: HEMATOCRIT 28.3 % (36-48); MEAN CORPUSCULAR HEMOGLOBIN 31.6 pg (27.0-33.0); MEAN CORPUSCULAR HGB CONC 34.6 g/dL (32.0-36.0); MEAN CORPUSCULAR VOLUME 91.3 fL (79-99); PLATELET COUNT (AUTO) 158 K/uL (130-400); RED CELL DISTRIBUTION WIDTH 14.7 % (11.0-15.5); WHITE BLOOD COUNT (AUTO) 3.8 K/uL (4.8-10.8)
[2020-07-02 05:53] LABS: BAND NEUTROPHILS % (MANUAL) 5 % (0-2); LYMPHOCYTES % (MANUAL) 11 % (22-44); MAN.DIFF COMMENT-IMPRESSION MANUAL DIFFERENTIAL; MONOCYTES % (MANUAL) 3 % (2-9); SEGMENTED NEUTROPHILS % 81 % (40-70)
[2020-07-02 05:54] LABS: PLATELET MORPHOLOGY COMMENT SLIGHTLY DECREASED
[2020-07-02] MEDS: INSULIN HUMULIN R 100 UNIT/ML 3ML SQ SCH (06:47)
[2020-07-02] MEDS: INSULIN NPH 100 UNIT/ML 3ML SQ SCH (08:52)
[2020-07-02] MEDS: FOLIC ACID 1 MG TABLET PO SCH (08:53)
[2020-07-02] MEDS: LINAGLIPTIN 5 MG TABLET PO SCH (08:53)
[2020-07-02] MEDS: FUROSEMIDE 40 MG TABLET PO SCH (08:53)
[2020-07-02] MEDS: DEXAMETHASONE SOD PHOSPHATE 10MG/ML 1ML VIAL IV SCH (08:53)
[2020-07-02] MEDS: Vitamin B Complex/Vit C/Folic Acid PO SCH (08:53)
[2020-07-02] MEDS: PANTOPRAZOLE 40 MG TAB DR PO SCH (08:53)
[2020-07-02] MEDS: AMLODIPINE 5 MG TAB PO SCH (08:53)
[2020-07-02] MEDS: CALCIUM AC 667MG CAP PO SCH (08:53)
[2020-07-02] MEDS: LISINOPRIL 40 MG TABLET PO SCH (08:53)
[2020-07-02] MEDS: LEVOTHYROXINE 75 MCG TABLET PO SCH (08:57)
[2020-07-07] MEDS ORDERED: **HM**(Cholecalciferol (Vitamin D3) 50,000 UNITS PO SCH (09:00)
== END 2020-07-02 11:30 | disposition home or self-care (01) | DRG 177 ==
LOC: EDH 11:58 → EDHIP 13:25 → 4BH 17:16
PROVIDERS: ADMIT Internal Medicine Nephrology; ATTEND Internal Medicine Nephrology
PROC: 5A1D70Z Performance of Urinary Filtration, Intermittent, Less than 6 Hours Per Day (ICD-10-PCS; 2020-06-29)
PROC: 30233N1 Transfusion of Nonautologous Red Blood Cells into Peripheral Vein, Percutaneous Approach (ICD-10-PCS; 2020-06-29)
PROC: 5A1D70Z Performance of Urinary Filtration, Intermittent, Less than 6 Hours Per Day (ICD-10-PCS; principal; 2020-07-01)
DX: U07.1 COVID-19 (principal); J12.82 Pneumonia due to coronavirus disease 2019; N18.6 End stage renal disease; I12.0 Hypertensive chronic kidney disease with stage 5 chronic kidney disease or end stage renal disease; D64.9 Anemia, unspecified; C53.9 Malignant neoplasm of cervix uteri, unspecified; E11.22 Type 2 diabetes mellitus with diabetic chronic kidney disease; Z82.49 Family history of ischemic heart disease and other diseases of the circulatory system; Z99.2 Dependence on renal dialysis; Z83.3 Family history of diabetes mellitus; Z90.710 Acquired absence of both cervix and uterus; Z79.4 Long term (current) use of insulin
CPT/HCPCS: 36415; 36430; 71045; 80053; 82947; 82948; 83735; 83880; 84100; 84145; 85025; 85027; 86704; 86706; 86850; 86900; 86901; 86923; 87040; 87340; 87426; 87520; 90935; 93005; 99291; G0378; J0696; J1100; J1644; J1815; P9016

== ENCOUNTER → 2023-05-28 | Outpatient (CLI) | payer OTHER ==
[~2023-05-28] MED LIST changes: -ASPI-1443 PO; -ATOR10 PO; -LEVO50TA11 PO; +LEVO75CA5 PO; -PANT40TA55 PO; +VITAD50000 PO
== END | disposition home or self-care (01) ==
LOC: LAB 10:53
PROVIDERS: ATTEND Internal Medicine Cardiovascular Disease
DX: I25.10 Atherosclerotic heart disease of native coronary artery without angina pectoris (principal)
CPT/HCPCS: 36415; 83880

== ENCOUNTER → 2023-05-29 | Outpatient (CLI) | payer OTHER | END | disposition home or self-care (01) | LOC: SHCH 08:44 | PROVIDERS: ATTEND Internal Medicine Cardiovascular Disease | DX: R07.9 Chest pain, unspecified (principal) | CPT/HCPCS: 93306 ==

== ENCOUNTER 2023-10-01 06:11 | Day surgery (SDC) | payer OTHER ==
[2023-09-28 13:50] LABS: BASOPHILS # (AUTO) 0.04 K/uL (0.00-0.20); BASOPHILS % (AUTO) 0.6 % (0.0-5.0); EOSINOPHILS % (AUTO) 1.6 % (0.0-8.0); HEMATOCRIT 27.6 % (36-48); IMMATURE GRANULOCYTE ABSOLUTE 0.03 K/uL (0-1); LYMPHOCYTES # (AUTO) 1.1 K/uL (1.0-4.8); LYMPHOCYTES % (AUTO) 18.5 % (21.0-51.0); MEAN CORPUSCULAR HEMOGLOBIN 28.9 pg (27.0-33.0); MEAN CORPUSCULAR HGB CONC 31.9 g/dL (32.0-36.0); MEAN CORPUSCULAR VOLUME 90.5 fL (79-99); MONOCYTES # (AUTO) 0.4 K/uL (0.1-1.0); NEUTROPHILS # (AUTO) 4.4 K/uL (1.8-7.7); NEUTROPHILS % (AUTO) 71.8 % (40.0-77.0); PLATELET COUNT (AUTO) 226 K/uL (130-400); RED BLOOD CELL COUNT(AUTO) 3.05 MIL/uL (4.00-5.50); RED CELL DISTRIBUTION WIDTH 17.2 % (11.0-15.5); WHITE BLOOD COUNT (AUTO) 6.2 K/uL (4.8-10.8)
[2023-09-28 14:00] LABS: CREATININE 3.8 mg/dL (0.5-1.0); POTASSIUM 3.7 mmol/L (3.5-5.1)
[2023-09-28 14:07] LABS: INR <= 0.93 (0.85-1.15); PROTHROMBIN TIME 10.7 SEC (9.6-11.6)
[2023-09-28 14:08] LABS: PARTIAL THROMBOPLASTIN TIME 32.9 SEC (26.3-35.5)
[2023-09-30 10:52] VITALS: BP 148/80; PULSE 83; RESP 19
[2023-10-01] VITALS (17 sets, daily range): BP systolic 135–182; BP diastolic 69–91; PULSE 64–78; RESP 14–18
[~2023-10-01] VITALS: Ht 157.5 cm; Wt 60.0 kg
[~2023-10-01 06:11] MED LIST changes: -AMLO-257 PO; +FOLI0.8T22 PO; -FOLIC ACID PO; -IRON150C15 PO; +LABE200T7 PO; +LEVO100C4 PO; -LEVO75CA5 PO; -LINA5TAB PO; -PHOSLOC PO; +POTA-202 PO; -RENAVITE PO; +ROSU5TAB12 PO; -VITAD50000 PO
[2023-10-01] MEDS ORDERED: DEXAMETHASONE SOD PHOSPHATE 10MG/ML 1ML VIAL ONE (06:44)
[2023-10-01] MEDS ORDERED: GLYCOPYRROLATE 0.2 MG/ML 5 ML VIAL ONE (06:44)
[2023-10-01] MEDS ORDERED: LIDOCAINE PF 100MG/5ML (2%) SYRINGE 5ML ONE (06:44)
[2023-10-01] MEDS ORDERED: ONDANSETRON 4MG INJ ONE (06:44)
[2023-10-01] MEDS ORDERED: MIDAZOLAM HCL 1 MG/ML 2ML VIAL ONE (06:44)
[2023-10-01] MEDS ORDERED: SUCCINYLCHOLINE CHLORIDE 20 MG/ML 10 ML VIAL ONE (06:45)
[2023-10-01] MEDS ORDERED: FENTANYL CITRATE PF 50 MCG/1 ML 2ML VIAL ONE (06:45)
[2023-10-01] MEDS ORDERED: ROCURONIUM BROMIDE 10MG/1ML 5ML VL ONE (06:45)
[2023-10-01] MEDS ORDERED: NEOSTIGMINE METHYLSULFATE 1MG/ML IV ONE (06:45)
[2023-10-01] MEDS ORDERED: PROPOFOL 10 MG/ML 20ML VIAL IV ONE (06:45)
[2023-10-01] MEDS: 0.9% NACL 500ML IV.SOLN 500 ML IV ONE (06:49)
[2023-10-01 07:11] LABS: CREATININE 4.4 mg/dL (0.5-1.0); POTASSIUM 3.4 mmol/L (3.5-5.1)
[2023-10-01] MEDS ORDERED: BUPIVACAINE/PF 0.5% 30ML VIAL ONE (07:14)
[2023-10-01] MEDS ORDERED: LIDOCAINE HCL 2% JELLY 5 ML ONE (07:22)
[2023-10-01] MEDS: BUPIVACAINE/EPI/PF 0.5% 30ML VIAL IJ ONE (07:45)
[2023-10-01] MEDS ORDERED: CEFAZOLIN SODIUM 1 GM VIAL ONE (07:47)
[2023-10-01] MEDS ORDERED: EPHEDRINE SULFATE 50 MG/ML AMPULE ONE (07:53)
[2023-10-01] MEDS ORDERED: TRAM50TA4 PO (08:13)
[2023-10-01] MEDS ORDERED: DOCU-116 PO (08:13)
[2023-10-01] MEDS: ONDANSETRON 4MG INJ ONE (08:57)
[2023-10-01] MEDS: ACETAMINOPHEN 1,000 MG/100 ML VIAL IV ONE (08:58)
[2023-10-01] MEDS: MEPERIDINE-PF 25 MG/ML SYG ONE ×2 (08:58)
== END 2023-10-01 10:10 | disposition home or self-care (01) ==
LOC: DAH 06:11
PROVIDERS: ATTEND Surgery
DX: T85.611A Breakdown (mechanical) of intraperitoneal dialysis catheter, initial encounter (principal); E10.22 Type 1 diabetes mellitus with diabetic chronic kidney disease; I12.0 Hypertensive chronic kidney disease with stage 5 chronic kidney disease or end stage renal disease; N18.6 End stage renal disease; K21.9 Gastro-esophageal reflux disease without esophagitis; D50.9 Iron deficiency anemia, unspecified; D53.9 Nutritional anemia, unspecified; D50.8 Other iron deficiency anemias; R60.9 Edema, unspecified; D61.9 Aplastic anemia, unspecified; T78.49XA Other allergy, initial encounter; D63.1 Anemia in chronic kidney disease; Z79.01 Long term (current) use of anticoagulants; Z79.899 Other long term (current) drug therapy; Z98.890 Other specified postprocedural states; Z90.710 Acquired absence of both cervix and uterus; Z98.891 History of uterine scar from previous surgery; Z82.49 Family history of ischemic heart disease and other diseases of the circulatory system; Z79.890 Hormone replacement therapy; Z85.41 Personal history of malignant neoplasm of cervix uteri; Z99.2 Dependence on renal dialysis; Z79.4 Long term (current) use of insulin; Y83.8 Other surgical procedures as the cause of abnormal reaction of the patient, or of later complication, without mention of misadventure at the time of the procedure; Y92.89 Other specified places as the place of occurrence of the external cause
CPT/HCPCS: 93005; 80048 ×2; 84703; 85025; 85610; 85730; 36415 ×2; 49422; 82948 ×2; A6260; J7040 ×2; A4649; J3010; J0690 ×2; J1100; J0330; J3490 ×4; J2001; J2250; J2704; J2405 ×2; J2710; J0665; J2175 ×2; A4930

== ENCOUNTER 2023-10-14 09:08 | Day surgery (SDC) | payer OTHER ==
[2023-10-12 11:20] LABS: BASOPHILS # (AUTO) 0.03 K/uL (0.00-0.20); BASOPHILS % (AUTO) 0.5 % (0.0-5.0); EOSINOPHILS # (AUTO) 0.05 K/uL (0.00-0.70); EOSINOPHILS % (AUTO) 0.8 % (0.0-8.0); HEMATOCRIT 28.3 % (36-48); IMMATURE GRANULOCYTE ABSOLUTE 0.02 K/uL (0-1); LYMPHOCYTES % (AUTO) 15.7 % (21.0-51.0); MEAN CORPUSCULAR HEMOGLOBIN 30.9 pg (27.0-33.0); MEAN CORPUSCULAR HGB CONC 33.6 g/dL (32.0-36.0); MEAN CORPUSCULAR VOLUME 92.2 fL (79-99); MONOCYTES # (AUTO) 0.3 K/uL (0.1-1.0); NEUTROPHILS # (AUTO) 4.8 K/uL (1.8-7.7); NEUTROPHILS % (AUTO) 77.7 % (40.0-77.0); PLATELET COUNT (AUTO) 151 K/uL (130-400); RED BLOOD CELL COUNT(AUTO) 3.07 MIL/uL (4.00-5.50); RED CELL DISTRIBUTION WIDTH 19.7 % (11.0-15.5); WHITE BLOOD COUNT (AUTO) 6.2 K/uL (4.8-10.8)
[2023-10-12 11:32] LABS: CREATININE 3.9 mg/dL (0.5-1.0); POTASSIUM 3.8 mmol/L (3.5-5.1)
[2023-10-12 11:34] VITALS: BP 170/90; PULSE 74; RESP 16
[2023-10-12 11:49] LABS: B-TYPE NATRIURETIC PEPTIDE 1800 pg/mL (0-100)
[2023-10-12 11:54] LABS: INR <= 0.93 (0.85-1.15); PROTHROMBIN TIME 10.3 SEC (9.6-11.6)
[~2023-10-14] VITALS: Ht 157.5 cm; Wt 59.7 kg
[2023-10-14] VITALS (10 sets, daily range): BP systolic 112–182; BP diastolic 58–76; PULSE 76–89; RESP 15–18
[2023-10-14] MEDS ORDERED: 0.9%NACL 1000ML 1,000 ML IV ONE (10:31)
[2023-10-14] MEDS ORDERED: SODIUM BICARB 50MEQ 50ML VIAL 50 ML ONE (13:40)
[2023-10-14] MEDS ORDERED: LIDOCAINE HCL 400MG/20ML VIAL ONE (13:40)
[2023-10-14] MEDS ORDERED: IOHEXOL 350 MG/ML 100ML INFUS..BTL IV ONE (13:41)
[2023-10-14] MEDS ORDERED: MEPERIDINE-PF 25 MG/ML SYG ONE ×2 (13:41→14:04)
[2023-10-14] MEDS ORDERED: MIDAZOLAM HCL 1 MG/ML 2ML VIAL ONE ×2 (13:41→14:04)
[2023-10-14] MEDS ORDERED: IOHEXOL-350 50ML VIAL IV ONE (13:41)
[2023-10-14] MEDS ORDERED: HEPARIN 10,000 UNIT/10ML (1,000 UNIT/ML) VIAL ONE (13:42)
[2023-10-14] MEDS ORDERED: NITROGLYCERIN 50MG VIAL ONE (13:43)
[2023-10-14] MEDS ORDERED: LABETALOL 20MG SYG IV ONE (13:55)
[2023-10-14] MEDS ORDERED: HYDRALAZINE 20MG/ML VIAL ONE (14:02)
[2023-10-14] MEDS ORDERED: ASPIRIN 325MG EC TAB PO ONE (14:56)
[2023-10-14] MEDS ORDERED: CLOPIDOGREL 300MG TAB ONE (14:56)
[2023-10-14] MEDS ORDERED: DEXTROSE 50%-WATER 50 ML DISP.SYRIN IV PRN (15:00)
[2023-10-14] MEDS ORDERED: GLUCAGON 1MG KIT 1 MG ML IM PRN (15:00)
[2023-10-14] MEDS: LABETALOL 20MG SYG IV PRN (15:42)
[2023-10-14] MEDS: ACETAMINOPHEN WITH CODEINE 1 TAB TAB PO ONE (15:42)
[2023-10-14] MEDS: PANTOPRAZOLE 40 MG/VIAL IVP ONE (15:56)
[2023-10-14] MEDS ORDERED: INSULIN HUMULIN R 100 UNIT/ML 3ML SQ SCH (16:30)
== END 2023-10-14 21:05 | disposition home or self-care (01) ==
LOC: DAH 09:08
PROVIDERS: ATTEND Internal Medicine Cardiovascular Disease
DX: I25.10 Atherosclerotic heart disease of native coronary artery without angina pectoris (principal); I13.2 Hypertensive heart and chronic kidney disease with heart failure and with stage 5 chronic kidney disease, or end stage renal disease; E11.22 Type 2 diabetes mellitus with diabetic chronic kidney disease; I50.32 Chronic diastolic (congestive) heart failure; N18.6 End stage renal disease; E78.5 Hyperlipidemia, unspecified; F41.9 Anxiety disorder, unspecified; E66.9 Obesity, unspecified; Z68.24 Body mass index [BMI] 24.0-24.9, adult; Z82.49 Family history of ischemic heart disease and other diseases of the circulatory system; Z83.3 Family history of diabetes mellitus; Z82.3 Family history of stroke; Z79.899 Other long term (current) drug therapy; Z98.891 History of uterine scar from previous surgery
CPT/HCPCS: 80048; 83880; 85025; 85610; 85730; 36415; 71045; 93005; 93458; 93571; 82948; C9600; C1894 ×2; C1760; C1874; C1887; C1769; Q9965 ×2; C1725; J3490 ×3; J7030; J0360; J1644 ×2; J2250 ×2; C9113; J2175 ×2; Q9967 ×2; A4215; A4222; A4221; A4663; A4216; A4606; A4223 ×3; 99156; 99157

== ENCOUNTER 2024-03-07 02:20 | Emergency (ER) | payer OTHER ==
[~2024-03-07] VITALS: Ht 157.5 cm; Wt 63.5 kg
[~2024-03-07 02:20] MED LIST changes: -LABE200T7 PO; -ROSU5TAB12 PO; +ROSU5TAB43 PO
[2024-03-07 02:24] VITALS: TEMP 97.8
[2024-03-07 02:33] LABS: BASOPHILS # (AUTO) 0.04 K/uL (0.00-0.20); BASOPHILS % (AUTO) 0.6 % (0.0-5.0); EOSINOPHILS # (AUTO) 0.05 K/uL (0.00-0.70); EOSINOPHILS % (AUTO) 0.7 % (0.0-8.0); HEMATOCRIT 35.2 % (36-48); IMMATURE GRANULOCYTE ABSOLUTE 0.01 K/uL (0-1); LYMPHOCYTES # (AUTO) 3.4 K/uL (1.0-4.8); LYMPHOCYTES % (AUTO) 46.5 % (21.0-51.0); MEAN CORPUSCULAR HEMOGLOBIN 34.9 pg (27.0-33.0); MEAN CORPUSCULAR HGB CONC 34.9 g/dL (32.0-36.0); MONOCYTES # (AUTO) 0.5 K/uL (0.1-1.0); MONOCYTES % (AUTO) 6.9 % (3.0-13.0); NEUTROPHILS # (AUTO) 3.3 K/uL (1.8-7.7); NEUTROPHILS % (AUTO) 45.2 % (40.0-77.0); PLATELET COUNT (AUTO) 210 K/uL (130-400); RED BLOOD CELL COUNT(AUTO) 3.52 MIL/uL (4.00-5.50); RED CELL DISTRIBUTION WIDTH 13.3 % (11.0-15.5); WHITE BLOOD COUNT (AUTO) 7.3 K/uL (4.8-10.8)
[2024-03-07] MEDS: NITROGLYCERIN 1GM OINT 1 INCH/1GM TD ONE (02:35)
[2024-03-07] MEDS: morPHINE 4 MG SYG IVP ONE (02:36)
[2024-03-07] MEDS: ONDANSETRON 4MG INJ IVP ONE (02:36)
[2024-03-07] MEDS: ASPIRIN 81MG CHEW TAB PO ONE (02:36)
[2024-03-07] MEDS: LACTATED RINGERS 1000ML 1,000 ML IV ONE (02:37)
[2024-03-07 02:50] LABS: POTASSIUM 5.2 mmol/L (3.5-5.1)
[2024-03-07 02:54] LABS: CREATININE 11.4 mg/dL (0.5-1.0)
[2024-03-07] MEDS: LAbetaLOL 20MG SYG IV ONE (03:03)
[2024-03-07] MEDS: LORazepam 2 MG/ML 1 ML VIAL IVP ONE (03:03)
[2024-03-07 03:19] LABS: B-TYPE NATRIURETIC PEPTIDE 2540 pg/mL (0-100)
[2024-03-07 04:07] VITALS: BP 148/75; PULSE 85; RESP 18; O2SAT 99
== END 2024-03-07 04:25 | disposition home or self-care (01) ==
LOC: EDH 02:20
DX: F41.9 Anxiety disorder, unspecified (principal); I12.0 Hypertensive chronic kidney disease with stage 5 chronic kidney disease or end stage renal disease; N18.6 End stage renal disease; R07.89 Other chest pain; D63.1 Anemia in chronic kidney disease; E78.5 Hyperlipidemia, unspecified; Z79.899 Other long term (current) drug therapy
CPT/HCPCS: 99285; 96374; 96375; 71045; 96361; 84484 ×2; 80048; 83880; 84703; 85025; 82948; 36415; 93005; J7120; J2405; J2060; J2270